=== PATIENT | male | born 2000 | race Caucasian/White ===

== ENCOUNTER 2021-02-19 23:32 | Emergency (ER) | payer BC, OTHER, SELFPAY ==
--- NOTE | ~2021-02-19 | XR_ITS ---
EXAMINATION: XR foot RT min 3V DATE: 02/20/2021 00:34 INDICATION: Right heel pain. TECHNIQUE: 4 views of right foot were obtained. COMPARISON: None. FINDINGS: Bone alignment is normal. No acute fracture. Joint spaces are normal. There is a dystrophic calcification medial to head of first metatarsal. IMPRESSION: 1. No acute fracture. Reviewed, dictated and finalized at location B. ENT ACCOUNTS MANAGER IMPRESSION: 1. No acute fracture.
[2021-02-19 23:39] VITALS: BP 118/64; PULSE 75; RESP 18; TEMP 36.3; O2SAT 98
[2021-02-20] MEDS: IBUPROFEN 400 MG TABLET 800 MG PO (00:42)
--- NOTE | 2021-02-20 01:07 | ED.EXTPRO ---
HPI - Extremity Problem General Chief complaint: Extremity Problem,Nontraumatic Stated complaint: foot pain, swelling Time Seen by Provider: 02/20/21 00:00 History of Present Illness HPI Narrative: Patient is a 20-year-old male who presents ER with right sided heel pain. Progressing throughout the day. Pain with standing. No known trauma. He did not step on anything sharp. No fevers or chills or sweats. No redness or swelling or drainage. Has not tried any pain medication. He is diabetic and has not checked her sugars. Related Data Allergies Allergy/AdvReac Type Severity Reaction Status Date / Time No Known Allergies Allergy Verified 02/19/21 23:53 Review of Systems Constitutional: Constitutional: Denies chills, Denies fever(s) and Denies weakness Musculoskeletal: Musculoskeletal: Denies arthralgias and Denies joint swelling Comments: Right heel pain Integumentary/Breasts: Skin/Breast: Denies erythema, Denies rash and Denies skin ulcer Neurologic: Denies focal weakness and Denies numbness PMFSH Past Medical History Medical History (Updated 02/20/21 @ 01:09 by Laurent Pinto MD) Type 1 diabetes Surgical History Surgical History (Updated 02/20/21 @ 01:08 by Laurent Pinto MD) No history of previous surgery Exam Narrative: GENERAL: Well-appearing, well-nourished, and in no acute distress. HEAD: Normocephalic, atraumatic. CHEST: Clear to auscultation. No respiratory distress. HEART: Regular rate and rhythm. Normal peripheral pulses. EXTREMITIES: Normal range of motion. No edema. Tenderness over the posterior lateral aspect of the right heel without swelling or palpable nodule. No evidence of infection. No tenderness or swelling over the malleoli of the right ankle, the fifth metatarsal, or the Achilles tendon. No plantar fascial pain. SKIN: Warm, dry, no rash. NEURO: Alert and oriented x3. PSYCH: Normal mood and affect. Course Course Emergency Course: Informed results. Discussed treatment plan. Discharge home. Vital Signs Vital signs: Vital Signs Temperature 97.4 F L 02/19/21 23:39 Pulse Rate 75 02/19/21 23:39 Respiratory Rate 18 02/19/21 23:39 Blood Pressure 118/64 02/19/21 23:39 Pulse Oximetry 98 02/19/21 23:39 Temperature 97.4 F L 02/19/21 23:39 Pulse Rate 75 02/19/21 23:39 Respiratory Rate 18 02/19/21 23:39 Blood Pressure 118/64 02/19/21 23:39 Pulse Oximetry 98 02/19/21 23:39 MDM - Extremity (Nontraumatic) Imaging Data My impression: X-ray right foot: No acute process or foreign body. Discharge Plan Discharge Clinical Impression: Chronic heel pain Patient Disposition: Home, Self-Care Condition: Stable Instructions: P.R.I.C.E. Treatment (ED) Additional Instructions: Take ibuprofen regularly to help with inflammation, you may also apply ice. Bear weight as tolerated. Return the ER if your skin is red and hot, you develop fever over 100.4 ?F, you have chest pain or shortness of breath. Prescriptions: New ibuprofen 800 mg tablet 800 mg PO TID Qty: 20 RF: 0 Follow-up/Referrals: PHYSICIAN NOT ON STAFF,NONSTAFF [Primary Care Provider] - 1 Week
[2021-02-20 01:27] VITALS: BP 131/72; PULSE 54; RESP 16; O2SAT 99
== END 2021-02-20 01:28 | disposition home or self-care (01) ==
PROVIDERS: Emergency Provider Emergency Medicine
DX: M79.671 Pain in right foot (principal); G89.29 Other chronic pain; E10.9 Type 1 diabetes mellitus without complications
CPT/HCPCS: 73630; 99283; A9270